=== PATIENT | male | born 1960 | race Caucasian/White ===

== ENCOUNTER 2019-10-09 17:16 | Emergency (ER) | payer OTHER, SELFPAY ==
[2019-10-09 17:28] VITALS: BP 157/83; PULSE 75; RESP 16; TEMP 36.9; O2SAT 99
--- NOTE | 2019-10-09 17:35 | ED.SKABFB ---
HPI - Skin/Abscess/Foreign Bdy General Chief complaint: Skin/Abscess/Foreign Body Stated complaint: rash Time Seen by Provider: 10/09/19 17:36 Source: patient and RN notes reviewed Mode of arrival: ambulatory Limitations: no limitations History of Present Illness HPI narrative: This is a 58 years old male presented office for evaluation of itchy rash on his arms and face. He noticed it this morning when he woke up. He works outside a hydrator. He does not recall, in close contact with poison althea or sumac. He tried calamine lotion this morning with no changes. Denies sick contacts or changes in his medication. Related Data Home Medications Medication Instructions Recorded Confirmed cyclobenzaprine mg 10/09/19 ibuprofen 10/09/19 simvastatin mg 10/09/19 Allergies Allergy/AdvReac Type Severity Reaction Status Date / Time Penicillins Allergy Unknown Unknown Verified 03/17/19 01:27 Review of Systems Review of Systems: Narrative: CONSTITUTIONAL: Denies fever, chills EYES: Denies visual change ENT: Denies congestion CARDIOVASCULAR: Denies chest pain RESPIRATORY: Denies dyspnea GASTROINTESTINAL: Denies nausea, vomiting, diarrhea. SKIN: Reports itchy rash on his arm and face MUSCULOSKELETAL: Denies joints pain NEUROLOGIC: Denies lightheaded PMFSH Past Medical History Medical History Anxiety Bronchitis Depression History of bipolar disorder UTI (urinary tract infection) Family History Family History Other Cerebrovascular accident Diabetes mellitus Family history of cardiovascular disease Social History Social History Smoking status: Current every day smoker Alcohol intake: current Gender identity (if verbalized by the patient): Male Comments At time of signature, I agree with nursing past medical, surgical, social and family history. There is no relevant family history pertinent to the presenting complaint. Exam Narrative: Exam Narrative: GENERAL: This is a well-nourished, well-developed patient, in no apparent distress. EYES: PERRL. EMOI. bilatera upper lids noted edematous. Sclera clear/white. Vision is grossly intact. THROAT: Mucous membranes moist, posterior pharynx clear. NECK: Neck supple, non-tender without lymphadenopathy, masses or thyromegaly. CARDIOVASCULAR: Regular rate and rhythm without murmurs, gallops, or rubs. RESPIRATORY: Clear to auscultation. Breath sounds equal bilaterally. No wheezes, rales, or rhonchi. GASTROINTESTINAL: Abdomen soft, non-tender, nondistended. Bowel sounds are active. No hepato-splenomegaly, or palpable masses. No guarding. SKIN: left arm at AC noted blanchable erythema, edematous with excoriation; without lymphadenitis or secondary cellulitis. NEURO: awake, alert, and oriented to person, place and time. There were no obvious focal neurologic abnormalities. Steady gait EXTREMITIES: Normal range of motion. [place] Coma Scale Eye Opening: Spontaneous 4 [place] Coma Scale Motor: Obeys Commands 6 Raffi Coma Scale Verbal: Oriented 5 Course Vital Signs Vital signs: Vital Signs Temperature 98.5 F 10/09/19 17:28 Pulse Rate 75 10/09/19 17:28 Respiratory Rate 16 10/09/19 17:28 Blood Pressure 157/83 H 10/09/19 17:28 Pulse Oximetry 99 10/09/19 17:28 Temperature 98.5 F 10/09/19 17:28 Pulse Rate 75 10/09/19 17:28 Respiratory Rate 16 10/09/19 17:28 Blood Pressure 157/83 H 10/09/19 17:28 Pulse Oximetry 99 10/09/19 17:28 MDM - Skin/Abscess/Foreign Bdy MDM Narrative Medical decision making narrative: Elevated BP noted: patient is informed that they may have pre-hypertension or hypertension based on a blood pressure reading in the department. I recommend the patient call the primary care provider listed on their discharge instructions or a physician of
== END 2019-10-09 17:53 | disposition home or self-care (01) ==
PROVIDERS: Emergency Provider Nurse Practitioner
DX: L24.7 Irritant contact dermatitis due to plants, except food (principal); Z87.891 Personal history of nicotine dependence
CPT/HCPCS: 99213; G0463